=== PATIENT | male | born 1990 | race Caucasian/White ===

== ENCOUNTER 2022-02-21 01:35 | Emergency (ER) | payer MEDICAID ==
[2022-02-21] MEDS: LORazepam 2 MG/ML SDV IVPUSH ONE (02:00)
[2022-02-21] MEDS: Sodium Chloride 0.9% 1,000 ML IV ONE (02:00)
[2022-02-21] MEDS: Midazolam 1 MG/ML 2 ML SDV IVPUSH ONE ×2 (02:05→02:15)
[2022-02-21] MEDS ORDERED: Etomidate 2 MG/ML 20 ML SDV IVPUSH ONE (02:58)
[2022-02-21] MEDS: Sodium Chloride 0.9% 1,000 ML IOSS ONE (03:17)
[2022-02-21] MEDS: Midazolam 1 MG/ML 2 ML SDV ONE (03:31)
[2022-02-21] MEDS: fentaNYL 100 MCG/2 ML SDV ONE (03:32)
[2022-02-21] MEDS: Propofol 200 MG/20 ML SDV ONE ×2 (03:38→03:47)
[2022-02-21] MEDS: Midazolam 1 MG/ML 5 ML SDV ONE (03:55)
[2022-02-21] MEDS: Propofol 200 MG/20 ML SDV IVPUSH ONE (03:59)
[2022-02-21] MEDS: fentaNYL 100 MCG/2 ML SDV IVPUSH ONE (04:11)
[2022-02-21] MEDS: Midazolam 1 MG/ML 10 ML MDV IVPUSH ONE (04:21)
== END 2022-02-21 05:00 ==
LOC: LB.ED 01:35
DX: T40.5X1A Poisoning by cocaine, accidental (unintentional), initial encounter (principal); F10.129 Alcohol abuse with intoxication, unspecified; Y90.7 Blood alcohol level of 200-239 mg/100 ml
CPT/HCPCS: 31500; 36415; 36680; 43752; 51702; 71045; 80053; 80307; 85025; 96361; 96374; 96375; 96376; 99285; J2060; J2250; J2704; J3010; J7030; A0425; A0429; J3490